=== PATIENT | female | born 1985 | race Caucasian/White ===

== ENCOUNTER 2016-06-24 13:18 | Emergency (ER) | payer OTHER ==
[~2016-06-24 13:18] MED LIST: AZITHROMYCIN250 MG PO; IOPHEN C-NR 10473 ML; TOPCARE OMEPRAZ20 MG PO
--- NOTE | 2016-06-24 13:45 | ED DYSPNEA/ASTHMA COMPLAINT ---
History of Present Illness General Chief Complaint: Dyspnea (COPD, CHF, Other) Stated Complaint: SOB Source: patient, family Exam Limitations: no limitations Vital Signs & Intake/Output Vital Signs & Intake/Output Vital Signs Date Time Temp Pulse Resp B/P Pulse O2 O2 Flow FiO2 Ox Delivery Rate 06/24 1528 97.0 72 20 116/80 98 Room Air 06/24 1416 98 Room Air 06/24 1323 93 22 128/70 100 Allergies Coded Allergies: sulfamethoxazole (From BACTRIM) (UNKNOWN 06/24/16) trimethoprim (From BACTRIM) (UNKNOWN 06/24/16) Reconcile Medications Ibuprofen 800 MG TABLET 1 TAB PO TID pain Triage Note: PER PT 20 MINUTES OF SOB PER PT HAS A VERY SMALL SPONTANOUS PNEUMO 18 MONTHS AGO. NO ACUTE SOB NOTED. LMP 2 WEEKS AGO Triage Nurses Notes Reviewed? yes Onset: Abrupt Duration: hour(s): Timing: recent history Severity: severe : No Patient currently breastfeeds: No HPI: 31-year-old female comes into emergency room with complaints of sudden left- sided rib pain that began about an hour and 15 minutes ago. Patient admits at the moment she is not experiencing any pain. Pain came on sudden and severe and worse with deep breath it made it difficult to breathe. Denies any recent chills fever or coughing. History of remote pneumothorax about a urinary have ago. Denies any vomiting. Denies any leg swelling. Denies any coughing up of blood. Denies any control. (AHSAN ORTIZ) Past History Travel History Traveled to [place] past 21 day No Medical History Any Pertinent Medical History? see below for history Neurological: NONE EENT: NONE Cardiovascular: NONE Respiratory: PNEUMOTHORAX Gastrointestinal: NONE Hepatic: NONE Renal: NONE Musculoskeletal: NONE Psychiatric: NONE Endocrine: NONE Blood Disorders: NONE Cancer(s): NONE INFORMATION LEAD/Reproductive: NONE Influenza Vaccine: 01/05/16 Surgical History Surgical History: non-contributory Psychosocial History What is your primary language Frisian Tobacco Use: Quit <30 days ago ETOH Use: denies use Family History Hx Contributory? No (AHSAN ORTIZ) Review of Systems Review of Systems Constitutional: Reports: no symptoms. EENTM: Reports: no symptoms. Respiratory: Reports: see HPI. Cardiovascular: Reports: see HPI. GI: Reports: no symptoms. Genitourinary: Reports: no symptoms. Musculoskeletal: Reports: see HPI. Skin: Reports: no symptoms. Neurological/Psychological: Reports: no symptoms. Hematologic/Endocrine: Reports: no symptoms. Immunologic/Allergic: Reports: no symptoms. All Other Systems: Reviewed and Negative (FARA SUMMERS,AHSAN) Physical Exam Physical Exam General Appearance: well developed/nourished, alert, awake Head: atraumatic, normal appearance Eyes: Bilateral: normal appearance. Ears, Nose, Throat: normal ENT inspection, hearing grossly normal Neck: normal inspection Respiratory: normal breath sounds, no respiratory distress, no rash, no chest wall tenderness left sciatica Cardiovascular: regular rate/rhythm Gastrointestinal: normal bowel sounds, soft, non-tender, no organomegaly Extremities: normal inspection Neurologic/Psych: awake, alert, oriented x 3, normal gait, normal mood/affect Skin: intact, normal color Core Measures ACS in differential dx? No Severe Sepsis Present: No Septic Shock Present: No All Positive = PERC Ruled Out: Positive: age < 50 years, heart rate < 100 bpm, O2 sat > 94%, no hemoptysis, no hormone use, no prior DVT or PE, no unilateral leg swellin, no surgery/trauma w/ in 4w. Wells Criteria Score: 0 (AHSAN ORTIZ) Progress Differential Diagnosis: asthma, AMI, bronchitis, costochondritis, CHF, COPD, musculoskeletal pain, pericarditis, pulmonary embolism, pneumonia, pneumothorax, rib fracture, unstable angina, costochondritis, pleurisy, Plan of Care: Orders Procedure Date/time Status Add-on Test (ER Only) 06/24 1502 Active CULTURE,URINE 06/24 1355 Active URINE 06/24 1345 Complete URINALYSIS 06/24 1345 Complete TROPONIN LEVEL 06/24 1345 Complete COMPREHENSIVE METABOLIC PANEL 06/24 1345 Complete CBC WITHOUT DIFFERENTIAL 06/24 1345 Complete EKG 06/24 1345 Active Laboratory Tests 06/24/16 1355: Urinalysis LIGHT H, Urine Color YEL, Urine Clarity HAZY H, Urine pH 6.0, Ur Specific [place] 1.025, Urine Protein NEG, Urine Ketones TRACE H, Urine Nitrite NEG, Urine Bilirubin NEG, Urine Urobilinogen 0.2, Ur Leukocyte Esterase TRACE H , Ur Microscopic SEDIMENT EXAMINED, Urine RBC 1-3, Urine WBC 5-10 H, Ur Epithelial Cells MANY H, Urine Crystals 3+ CA OX H, Urine Bacteria MOD H, Urine Hemoglobin TRACE-INTACT, Urine Glucose NEG, Urine Test NEGATIVE 06/24/16 1350: Anion Gap 12, Estimated GFR > 60, BUN/Creatinine Ratio 17.8, Glucose 101 H, Calcium 10.0, Total Bilirubin 0.7, AST 17, ALT 22, Alkaline Phosphatase 76, Troponin I < 0.01, Total Protein 8.0, Albumin 4.7, Globulin 3.3, Albumin/ Globulin Ratio 1.4, CBC w Diff NO MAN DIFF REQ, RBC 4.13 L, MCV 92.7, MCH 31.1 H, RDW 12.6, MPV 9.9, Gran % 57.1, Lymphocytes % 30.8, Monocytes % 9.4 H, Eosinophils % 2.3, Basophils % 0.4, Absolute Granulocytes 3.6, Absolute Lymphocytes 1.9, Absolute Monocytes 0.6, Absolute Eosinophils 0.1, Absolute Basophils 0, PUBS MCHC 33.6 Microbiology 06/24 1355 URINE ROUT: Urine Culture - RECD Diagnostic Imaging: Viewed by Me: Radiology Read. Discussed w/RAD: Radiology Read. Radiology Impression: EXAM TYPE: RAD - XRY-CHEST XRAY, PA AND LATERAL EXAMINATION: XR CHEST CLINICAL INFORMATION: Left rib pain. Evaluate for pneumonia. COMPARISON: Multiple priors, most recent chest radiographs dated . TECHNIQUE: PA and lateral views of the chest were obtained. FINDINGS: The lungs are clear. The cardiomediastinal silhouette is normal in size. There is no pleural effusion or pneumothorax. No abnormalities are noted in the visualized bones. IMPRESSION: No acute cardiopulmonary disease. DICTATED BY: MARY SIMON MD DATE/TIME DICTATED:06/24/161444 MANPOWER DEVELOPMENT SPECIALIST MANAGER:YELITZA DATE/TIME TRANSCRIBED:06/24/161444 Initial ED EKG: normal intervals, normal p-waves, normal QRS complex, normal sinus rhythm, rate (69) Comments: 06/24/2016 3:44:51 PM Patient clinically looks well. Nontoxic-appearing. In no apparent distress. No pain currently. No suspicion for pulmonary embolism at this time. Pain is consistent more with musculoskeletal pain. Pain is not consistent with cardiac type pain. Normal EKG. No cardiac risk factors. Patient understands and agrees with plan of care. Return if any other concerns. Case discussed with Dr. Fletcher. (AHSAN ORTIZ) Departure Departure Disposition: HOME OR SELF CARE Condition: Stable Clinical Impression Primary Impression: Rib pain on left side Referrals: PATIENT HAS NO PRIMARY CARE DR (PCP/Family) Additional Instructions: Follow-up with your primary care doctor. Take ibuprofen as prescribed. Return if any concerns worsening symptoms. Please go over all results of today's visit with your primary care doctor. Contact your primary care doctor to let them know you were here in the emergency room. There may be nonspecific findings which may not be related to your visit today here in the emergency room but may require further evaluation and chronic monitoring by your primary care doctor. If you had a laceration today the chance of foreign body always remains. You should follow-up with your primary care doctor for recheck in 3-5 days for a wound check. If you had an x-ray done there is a chance that a fracture could have been missed on initial read and you should follow-up with your primary care doctor for repeat x-rays if symptoms persist. If your blood pressure was elevated here in the emergency room please have rechecked by her primary care doctor within the next 48 hours by your primary care doctor. If you were prescribed a narcotic here in the emergency room or any type of controlled substances you're not allowed to drive while taking this medication or operate any type of heavy machinery. Narcotics can make you feel lightheaded dizziness nausea and can cause constipation. You may need to apple picking supervisor a stool softener. Thank you for choosing [facility] emergency room. Please return to the emergency room immediately if you have any other concerns worsening of symptoms. Departure Forms: Customer Survey General Discharge Information Prescriptions: Current Visit Scripts Ibuprofen 1 TAB PO TID #20 TAB (AHSAN ORTIZ) PA/MOUNTING INSPECTOR Co-Sign Statement Statement: ED Attending supervision documentation- [] I saw and evaluated the patient. I have also reviewed all the pertinent lab results and diagnostic results. I agree with the findings and the plan of care as documented in the PA's/MOUNTING INSPECTOR's documentation. [X] I have reviewed the ED Record and agree with the PA's/MOUNTING INSPECTOR's documentation. [] Additions or exceptions (if any) to the PAs/MOUNTING INSPECTOR's note and plan are summarized below: [] (JONE SANTIAGO,YVETTE Izquierdo) Critical Care Note Critical Care Note Critical Care Time: non-applicable (FARA SUMMERS,AHSAN)
[2016-06-24 14:21] LABS: ABSOLUTE BASOPHIL COUNT 0 /CUMM (0.0-0.2); ABSOLUTE EOSINOPHIL COUNT 0.1 /CUMM (0.0-0.7); ABSOLUTE GRANULOCYTE CT 3.6 /CUMM (1.4-6.5); ABSOLUTE LYMPH COUNT 1.9 /CUMM (1.2-3.4); ABSOLUTE MONOCYTE COUNT 0.6 /CUMM (0.10-0.60); BASOPHIL % 0.4 % (0.0-2.0); EOSINOPHIL % 2.3 % (0-5); GRANULOCYTE % 57.1 % (42.2-75.2); HEMATOCRIT 38.3 % (37-47); MEAN CORPUSCULAR HGB 31.1 PG (27.0-31.0); MEAN CORPUSCULAR HGB CONC 33.6 G/DL (33.0-37.0); MEAN CORPUSCULAR VOLUME 92.7 FL (81.0-99.0); MEAN PLATELET VOLUME 9.9 FL (7.4-10.4); PLATELET COUNT 209 /CUMM (130-400); RBC DISTRIBUTION WIDTH 12.6 % (11.5-14.5); RED BLOOD CELL CT 4.13 /CUMM (4.20-5.40); WHITE BLOOD CELL COUNT 6.3 /CUMM (4.8-10.8)
--- NOTE | 2016-06-24 14:52 | RADIOLOGY REPORT ---
EXAMINATION: XR CHEST CLINICAL INFORMATION: Left rib pain. Evaluate for pneumonia. COMPARISON: Multiple priors, most recent chest radiographs dated 12/07/2015. TECHNIQUE: PA and lateral views of the chest were obtained. FINDINGS: The lungs are clear. The cardiomediastinal silhouette is normal in size. There is no pleural effusion or pneumothorax. No abnormalities are noted in the visualized bones. IMPRESSION: No acute cardiopulmonary disease.
[2016-06-24] MEDS ORDERED: IBUPROFEN800 M1 PO (15:18)
[2016-06-24 15:28] VITALS: BP 116/80
== END 2016-06-24 15:29 ==
LOC: ERH 13:18
PROVIDERS: Physician Assistant Medical
DX: R07.81 Pleurodynia (principal)
CPT/HCPCS: 81001; 81025; 87086; 93005; 93010